=== PATIENT | female | born 1970 | race Caucasian/White ===

== ENCOUNTER → 2018-09-07 | Outpatient (REF) ==
[~2018-09-07] MED LIST: NAPROXEN 3375 MG/TAB PO; NO HOME MEDICATIONS
[2018-09-07 16:53] LABS: THYROID STIMULATING HORMONE 0.865 uIU/mL (0.465-4.680)
== END ==
LOC: ZLAB.WCH 16:02
PROVIDERS: Family Medicine
DX: Z01.89 Encounter for other specified special examinations (principal)